=== PATIENT | male | born 1995 | race African-American/Black ===

== ENCOUNTER 2018-08-04 10:53 | Emergency (ER) | payer MEDICAID ==
[~2018-08-04] VITALS: Ht 180.3 cm; Wt 70.3 kg
[2018-08-04 11:07] VITALS: BP 128/60
== END 2018-08-04 11:42 | disposition home or self-care (01) ==
LOC: ER 10:56
DX: S50.01XA Contusion of right elbow, initial encounter (principal)
CPT/HCPCS: 73080